=== PATIENT | male | born 1960 | race Caucasian/White ===

== ENCOUNTER 2017-09-29 20:49 | Inpatient (IN) | payer OTHER ==
[~2017-09-29] VITALS: Ht 180.3 cm; Wt 109.3 kg
[~2017-09-29 20:49] MED LIST: ACIPHEX; ASPI-524; ATEN50TA; CLON1TAB4; DOCU-144; GABA; IBUP-1480; KETO; LIDO; NEURONTIN; OMEP40CA33; OXYCONTIN; RELISTOR; SILD50TA; SIMV80TA74; TIZA2TAB4; TOPAMAX; ZOLP10TA2; [UNRECOGNIZED DRUG - OTHER]; [UNRECOGNIZED DRUG - OTHER]
[2017-09-29 20:55] VITALS: BP_SYST 131
[2017-09-29] MEDS ORDERED: NACL 0.9% 1,000 ML IV ONE (21:23)
[2017-09-29] MEDS ORDERED: HYDROmorphone 1 MG INJ. 1 MG/ML AMPUL IVP ONE (21:30)
[2017-09-29] MEDS ORDERED: DIPHENHYDRAMINE INJ 50 MG/ML VIAL IVP ONE (21:30)
[2017-09-29] MEDS ORDERED: ASPIRIN 81 MG TAB.CHEW PO ONE (21:30)
[2017-09-29] MEDS ORDERED: ONDANSETRON HCL 4 MG/2 ML VIAL IVP ONE (21:30)
[2017-09-29] MEDS ORDERED: GABA-531 PO (21:38)
[2017-09-29] MEDS ORDERED: LEVO112T2 PO (21:38)
[2017-09-29] MEDS ORDERED: CLON2TAB4 PO (21:38)
[2017-09-29] MEDS ORDERED: OXYC-133 PO (21:38)
[2017-09-29] MEDS ORDERED: NITSL SL (21:38)
[2017-09-29] MEDS ORDERED: RANO10003 PO (21:38)
[2017-09-29] MEDS ORDERED: ISOS30TA6 PO (21:38)
[2017-09-29] MEDS ORDERED: AMLO2.5T2 PO (21:38)
[2017-09-29] MEDS ORDERED: EZET10TA PO (21:38)
[2017-09-29] MEDS ORDERED: FENO160 PO (21:38)
[2017-09-29] MEDS ORDERED: METH12DI SQ (21:38)
[2017-09-29] MEDS ORDERED: ATEN-41 PO (21:38)
[2017-09-29 21:48] LABS: CALCIUM 9.3 mg/dL (8.4-11.0); CREATININE 1.1 mg/dL (0.55-1.30); POTASSIUM 4.4 mmol/L (3.5-5.1)
[2017-09-29 21:52] LABS: ALBUMIN 3.7 g/dL (3.4-4.8); BASOPHILS # (AUTO) 0.1 K/uL (0.0-0.2); EOSINOPHILS # (AUTO) 0.2 K/uL (0.0-0.4); HEMATOCRIT 42.1 % (36-54); LYMPHOCYTES # (AUTO) 2.4 K/uL (1.0-5.5); MEAN CORPUSCULAR HEMOGLOBIN 31 pg (27-31); MONOCYTES # (AUTO) 0.5 K/uL (0.0-1.0); PLATELET COUNT (AUTO) 236 K/uL (130-430); TOTAL BILIRUBIN 0.4 mg/dL (0.0-1.0)
[2017-09-29 21:56] LABS: BASOPHILS % (AUTO) 1.2 % (0.0-2.0); EOSINOPHILS % (AUTO) 2.3 % (0.0-4.0); HEMOGLOBIN 14.1 g/dL (14.0-18.0); LYMPHOCYTES % (AUTO) 35.9 % (20.5-51.5); MEAN CORPUSCULAR HGB CONC 33 % (32-36); MEAN CORPUSCULAR VOLUME 93 fL (79.0-98.0); MONOCYTES % (AUTO) 7.4 % (1.7-9.3); NEUTROPHILS # (AUTO) 3.5 K/uL (1.8-7.7); NEUTROPHILS % (AUTO) 53.2 % (40.0-70.0); RED BLOOD CELL COUNT(AUTO) 4.53 MIL/uL (4.2-6.2); RED CELL DISTRIBUTION WIDTH 13.3 % (9.0-15.0); WHITE BLOOD COUNT (AUTO) 6.7 K/uL (4.8-10.8)
[2017-09-29 22:02] LABS: PROTHROMBIN TIME 10.1 SECS (9.5-12.5)
[2017-09-29] MEDS ORDERED: HYDROmorphone 2 MG/ML VIAL IVP ONE ×2 (22:45→23:30)
[2017-09-29] MEDS ORDERED: NITROGLYCERIN 0.4 MG TAB.SUBL SL ONE (23:30)
[2017-09-30] MEDS ORDERED: INSULIN REGULAR, HUMAN 100 UNITS/ML, 10 ML VIAL (novoLIN R) SUBCUT PRN (01:15)
[2017-09-30 01:52] VITALS: BP_SYST 145
[2017-09-30] MEDS ORDERED: ACETAMINOPHEN 325 MG TABLET PO PRN (02:45)
[2017-09-30] MEDS: HYDROmorphone 2 MG/ML VIAL IVP PRN ×6 (03:24→23:55)
[2017-09-30] MEDS ORDERED: NITROGLYCERIN 0.4 MG TAB.SUBL SL SCH (06:30)
[2017-09-30] MEDS ORDERED: OXYCODONE/ACETAMINOPHEN *10*mg/325 mg TABLET PO PRN (06:30)
[2017-09-30] MEDS ORDERED: DIPHENHYDRAMINE HCL 50 MG CAPSULE PO PRN (06:30)
[2017-09-30] MEDS ORDERED: LEVOTHYROXINE SODIUM 0.15 MG TABLET PO SCH (07:00)
[2017-09-30 07:29] LABS: THYROID STIMULATING HORMONE 2.39 uIu/mL (0.36-3.74)
[2017-09-30 08:00] VITALS: BP_SYST 139
[2017-09-30] MEDS: GABAPENTIN 300 MG CAPSULE PO SCH ×3 (08:11→20:20)
[2017-09-30] MEDS: RANOLAZINE 500 MG TAB.SR.12H PO SCH ×2 (08:14→20:20)
[2017-09-30] MEDS: ATENOLOL 25 MG TABLET(TENORMIN) PO SCH ×2 (08:14→20:21)
[2017-09-30] MEDS: clonazePAM 0.5 MG TABLET PO SCH ×2 (08:16→20:20)
[2017-09-30 08:17] LABS: TRIGLYCERIDES 101 mg/dL (30-150)
[2017-09-30 08:18] LABS: CHOLESTEROL 143 mg/dL (<200); HDL CHOLESTEROL 47 mg/dL (>45); LDL CHOLESTEROL 77 mg/dL (<100)
[2017-09-30] MEDS ORDERED: ISOSORBIDE MONONITRATE 30 MG TAB.ER.24H PO SCH (09:00)
[2017-09-30] MEDS ORDERED: ASPIRIN 81 MG TAB.CHEW PO SCH (09:00)
[2017-09-30] MEDS ORDERED: amLODIPine BESYLATE 5 MG TABLET PO SCH (09:00)
[2017-09-30 11:53] VITALS: BP_SYST 102
[2017-09-30 15:20] VITALS: BP_SYST 102
[2017-09-30 16:03] VITALS: BP_SYST 98
[2017-09-30 20:14] VITALS: BP_SYST 114
[2017-09-30] MEDS ORDERED: FENOFIBRATE NANOCRYSTALLIZED 48 MG TABLET (TRICOR) PO SCH (21:00)
[2017-09-30] MEDS ORDERED: EZETIMIBE 10 MG TABLET PO SCH (21:00)
[2017-10-01 00:15] VITALS: BP_SYST 109
[2017-10-01 00:20] VITALS: BP_SYST 111
== END 2017-10-01 01:18 | disposition home or self-care (01) | DRG 313 ==
LOC: SED 20:49 → STU 09-30 01:12
PROVIDERS: ADMIT Internal Medicine Hospice and Palliative Medicine; ATTEND Internal Medicine Hospice and Palliative Medicine
DX: R07.89 Other chest pain (principal); M47.12 Other spondylosis with myelopathy, cervical region; E11.9 Type 2 diabetes mellitus without complications; I25.10 Atherosclerotic heart disease of native coronary artery without angina pectoris; E78.00 Pure hypercholesterolemia, unspecified; E03.9 Hypothyroidism, unspecified; G62.9 Polyneuropathy, unspecified; G89.4 Chronic pain syndrome; I10 Essential (primary) hypertension; Z88.5 Allergy status to narcotic agent; Z88.8 Allergy status to other drugs, medicaments and biological substances; Z79.899 Other long term (current) drug therapy; Z95.1 Presence of aortocoronary bypass graft; I25.2 Old myocardial infarction
CPT/HCPCS: 36415; 71045; 80053; 80061; 82962; 83880; 84443-TC; 84484; 85025; 85610-TC; 85730-TC; 93005; 93306; 96374; 96375; 96376; 99285; J1170; J1200; J1815; J2405; Q0163